=== PATIENT | male | born 1970 ===

== ENCOUNTER 2023-03-26 09:47 | Outpatient (AMB) | payer MEDICARE, MEDICAID, SELFPAY ==
--- NOTE | 2023-03-26 10:53 | MHC.OFFWIV ---
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 Reports body aches chills fever nausea diarrhea and cough x2 days. Patient has a history of COPD and has been using albuterol inhaler and nebulizer as needed. PFSH Social History Patient Tobacco Use Status: Current everyday Tobacco user Physical Exam Vital Signs: Last Vital Signs Temp 99.1 F 03/26/23 10:59 Pulse 77 03/26/23 10:59 BP 170/80 H 03/26/23 10:59 Pulse Ox 95 03/26/23 10:59 Oxygen Delivery Method Room Air 03/26/23 10:59 Const General: healthy appearing and no acute distress HEENT Mouth: Normal oral and palatal mucosa present Resp Other: Expiratory wheeze noted bilaterally Effort & Inspection: normal respiratory effort and able to speak in complete sentences Cardio Rate: regular rate Rhythm: regular rhythm Assessment & Plan Assessment & Plan (1) Viral syndrome: Code(s): B34.9 - Viral infection, unspecified Plan Patient with a viral syndrome likely COVID/flu. Given the wheezing on auscultation will treat with prednisone and recommend continued use of albuterol every 4-6 hours. Will contact patient if swab positive Orders: Orders SARS-CoV2/FLU/RSV Today R68.89 - Other general symptoms and signs Medications: New prednisone 40 mg (2 x 20 mg) PO DAILY 10 tabs 0RF 5 days Coding Level of Care Code Est Pt Level 3 (08858) Diagnoses Viral syndrome B34.9
[2023-03-26 10:59] VITALS: BP 170/80; PULSE 77; TEMP 37.3; O2SAT 95
== END 2023-03-26 11:16 | disposition home or self-care (01) ==
PROVIDERS: Visit Provider Emergency Medicine
DX: B34.9 Viral infection, unspecified (principal)
CPT/HCPCS: 99213

== ENCOUNTER 2023-03-26 11:31 | Outpatient (REF) | payer MEDICARE, MEDICAID, SELFPAY ==
[2023-03-26 14:35] LABS: Influenza A PCR POSITIVE (Negative); Influenza B PCR NEGATIVE (Negative); Resp Syncy Virus RNA Qual PCR NEGATIVE (Negative); SARS COV2 PCR INHOUSE NEGATIVE (Negative)
== END 2023-03-26 11:32 | disposition home or self-care (01) ==
LOC: HO.LAB 11:31
PROVIDERS: Visit Provider Emergency Medicine
DX: R68.89 Other general symptoms and signs (principal); Z11.52 Encounter for screening for COVID-19; Z20.828 Contact with and (suspected) exposure to other viral communicable diseases
CPT/HCPCS: 0241U